=== PATIENT | male | born 1965 | race Caucasian/White ===

== ENCOUNTER → 2018-07-15 | Outpatient (CLI) | payer BC | LOC: RADUSWWP 13:58 | PROVIDERS: ATTEND Family Medicine | DX: R60.9 Edema, unspecified (principal); E78.5 Hyperlipidemia, unspecified | CPT/HCPCS: 93922 ==

== ENCOUNTER → 2019-02-10 | Outpatient (CLI) | payer BC ==
--- NOTE | 2019-02-11 08:57 | USB ---
Reason for exam: clinical finding. Indicated problem(s): palpable abnormality and lump or thickening in the right breast. Physical Findings: Nurse Summary: 3cm firm, movable nodule (nurse dw). US Breast RT Right complete breast ultrasound includes all four quadrants, the retroareolar region and axilla. Finding demonstrates a 2.5 x 1.8 x 2.2cm hypoechoic lesion at the posterior nipple. Located upper outer quadrant retroareolar. Some internal vascularity is present. Finding is very suspicious. Completion of work up with mammography recommended. These results were verbally communicated with the patient and result sheet given to the patient on 02/10/19. ASSESSMENT: Incomplete: need additional imaging evaluation, BI-RAD 0 RECOMMENDATION: Special view mammogram of both breasts. (including right lateral)
--- NOTE | 2019-02-11 09:00 | MM ---
Reason for exam: clinical finding. Indicated problem(s): palpable abnormality and lump or thickening in the right breast. [facility] Mammo w CAD JANIS Bilateral CC and MLO view(s) were taken. The breast tissue is almost entirely fat. Trace gynecomastia on the left. Large subareolar mass with associated heterogeneous calcifications measures 2.6 x 2.4 x 2.1cm. These results were verbally communicated with the patient and result sheet given to the patient on 02/10/19. ASSESSMENT: Highly suggestive of malignancy, BI-RAD 5 RECOMMENDATION: Surgical consultation and ultrasound core biopsy of the right breast. Called Dr. Figueroa with mammographic findings and has scheduled an appointment for the patient for 02/26/19 at 4:[address] Deluna. Biopsy scheduled for 02/19/19 at 2:00. PRELIMINARY REPORT CALLED AND FAXED TO DR. DELUNA ON 02/11/19.
== END | disposition home or self-care (01) ==
LOC: RADUSWWP 15:38
PROVIDERS: ATTEND Family Medicine
DX: N63.41 Unspecified lump in right breast, subareolar (principal)
CPT/HCPCS: 77066

== ENCOUNTER → 2019-02-19 | Day surgery (SDC) | payer BC ==
[2019-02-19 13:17] VITALS: RESP 16; BMI 36.5
[2019-02-19 14:44] VITALS: BP 114/75; PULSE 81; TEMP 97.8
--- NOTE | 2019-02-19 21:24 | USB ---
EXAMINATION TYPE: US biopsy breast VAD RT DATE OF EXAM: 02/19/2019 CLINICAL HISTORY: 53-year-old male patient is palpable abnormality, R92.8 Abnormal mammogram. TECHNIQUE: Ultrasound guided core biopsy of the subareolar right breast. COMPARISON: 02/10/2019 FINDINGS: The procedure of ultrasound guided core biopsy was explained to the patient. Benefits, alt ernatives, and risks were discussed. An informed consent was then obtained. The large vascular subareolar mass with a associated calcifications was targeted for biopsy. The patient was placed in supine positioning for imaging and for the procedure. The overlying skin w as prepped and draped in usual sterile fashion. Lidocaine was used as anesthetic into the skin follo wed by lidocaine/epinephrine mixture into the subcutaneous tissue and into the area of concern in the subareolar right breast. Under ultrasound guidance, 13-gauge vacuum-assisted mammotome Elite biopsy gun was used to obtain 6 c ore samples. Following this, a ribbon clip was left in lesion. The patient tolerated the procedure well without any immediate complication. The patient was kept in the radiology department for short stay after the procedure and then discharged home in stable condi tion. Post procedure mammogram was deferred at this time. IMPRESSION: Successful, uncomplicated ultrasound guided core biopsy of suspicious subareolar mass in the right breast, full pathology results to follow.
== END ==
LOC: RADUSWWP 12:26
PROVIDERS: ATTEND Surgery
DX: C50.021 Malignant neoplasm of nipple and areola, right male breast (principal)
CPT/HCPCS: 88305; 19083; A4648; J2001

== ENCOUNTER 2019-03-07 08:59 | Day surgery (SDC) | payer BC ==
[2019-03-07 09:25] VITALS: TEMP 97.6
[2019-03-07] MEDS ORDERED: ALPRAZolam 0.5 MG TAB PO STA (09:35)
[2019-03-07 10:35] VITALS: BP 146/79; PULSE 88; RESP 16
--- NOTE | 2019-03-07 10:37 | USB ---
Reason for exam: clinical finding. History: Patient has history of breast cancer at age 53. Malignant US biopsy breast VAD RT of the right breast, February 19, 2019. US Breast Axilla RT Right breast axilla ultrasound demonstrated a 4.8 x 3.4cm solid enlarged node at the axilla. ASSESSMENT: Suspicious, BI-RAD 4 RECOMMENDATION: Ultrasound core biopsy of the right breast.
--- NOTE | 2019-03-07 10:39 | US ---
ULTRASOUND GUIDED CORE BIOPSY RIGHT AXILLA LYMPH NODE: CLINICAL HISTORY: Large right axilla lymph node FINDINGS: The procedure was explained to the patient. The risks, complications, benefits and alternatives were discussed and any questions were answered. Informed consent was obtained. Patient was placed supin e on the ultrasound table and prepped and draped in the usual sterile fashion. Utilizing a 18-gauge core biopsy needle, five passes were made into the requested lymph node in the right axilla. A surgi vanessa clip was placed post biopsy Patient was stable throughout the procedure. Pathology is pending. All elements of maximal barrier and sterile technique were utilized. IMPRESSION: 1. Successful ultrasound guided core biopsy right axilla lymph node.
== END 2019-03-07 10:34 | disposition home or self-care (01) ==
LOC: RADPROMAIN 08:59 → EDSTATUS 09:00 → RADPROMAIN 10:34
PROVIDERS: ATTEND Surgery
DX: C50.921 Malignant neoplasm of unspecified site of right male breast (principal)
CPT/HCPCS: 88305; 88342; 88341; 76942; 38505; 76642; A4648

== ENCOUNTER → 2019-03-15 | Outpatient (CLI) | payer BC ==
--- NOTE | 2019-03-19 09:48 | PE ---
Nuclear medicine PET/CT HISTORY: Cancer right breast, initial Patient received 7.2 mCi F-18 FDG intravenously in delayed scanning performed from the skull base to the mid thighs. Localization and attenuation correction CT scan was performed. Comparison ultrasound right breast 02/10/2019 Neck and chest: There is no evident cervical adenopathy. Shotty nodes are present within the bilatera l neck. No associated hypermetabolic uptake. There is some uptake in the base of the tongue felt like ly to be physiologic. Correlate. Lungs show no mass. There is no mediastinal or hilar adenopathy. Right breast mass is noted in the swain bareolar location measuring 2.7 cm. There is associated hypermetabolic uptake, SUV is 3.9. No axillar y adenopathy. ABDOMEN: No evident liver mass. No retroperitoneal adenopathy or suspicious hypermetabolic uptake. Th ere are gallstones noted. There are prostate calcifications. Osseous structures: Postop changes noted in the right hip. No suspicious hypermetabolic uptake. Mild inflammatory change in the maxillary sinuses. Impression: Findings compatible with patient's right breast carcinoma. No evidence of metastatic dise ase. Some mild uptake in the base of the tongue may be physiologic, due to secretions. Consider direc t visualization.
== END | disposition home or self-care (01) ==
LOC: RADPETMAIN 13:20
PROVIDERS: ATTEND Surgery
DX: C50.821 Malignant neoplasm of overlapping sites of right male breast (principal); R93.89 Abnormal findings on diagnostic imaging of other specified body structures
CPT/HCPCS: 78815; A9552

== ENCOUNTER 2019-05-01 11:00 | Day surgery (SDC) | payer BC ==
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
[~2019-05-01 11:00] MED LIST: DEXAMETHASONE SOD PHOSPHATE 10 MG/ML 1 ML VIAL IV ONE; HEPARIN SODIUM,PORCINE 5,000 UNIT/ML 1 ML VIAL SQ ONE; LIDOCAINE 1% 20 ML VIAL (10MG/ML) FOR IV START INTRADERMA PRN; ONDANSETRON 4 MG/2 ML VIAL IVP ONE; Pre Op ABX Message 1 EACH MISC MISCELLANE ONE; SCOPOLAMINE 1.5MG/72HR PATCH TRANSDERM ONE
[2019-05-01 11:42] VITALS: RESP 16
[2019-05-01] MEDS: LACTATED RINGERS 1,000 ML IV SCH ×2 (12:09→23:36)
--- NOTE | 2019-05-01 12:16 | NM ---
EXAMINATION TYPE: NM sentinel node injection DATE OF EXAM: 05/01/2019 COMPARISON: Right breast biopsy dated 02/19/2019 HISTORY: Right breast cancer TECHNIQUE AND FINDINGS: The procedure of sentinel lymph node injection was explained to the patient. The benefits, alternatives, and risks were discussed. An informed consent was then obtained. Overlying skin is cleaned with sterile alcohol. Following this, 554 uCi Tc99m Tilmanocept was inject ed in the upper outer aspect of the right nipple intradermally. The patient tolerated the procedure well without any immediate complication. The patient was kept in the radiology department for short stay after the procedure and then taken to surgery for surgical p rocedure what is presumed intraoperative gamma probe will be used for sentinel lymph node detection. IMPRESSION: Right breast radiotracer injection for sentinel node localization as above.
[2019-05-01] MEDS ORDERED: MIDAZOLAM (PF) 2 MG/2 ML VIAL IV ONE (12:21)
[2019-05-01] MEDS ORDERED: ceFAZolin 3 GM in SODIUM CHLORIDE 0.9% 100 ML IVPB ONE (12:56)
[2019-05-01] MEDS ORDERED: PROPOFOL 10 MG/ML 20 ML VIAL IV ONE (13:20)
[2019-05-01] MEDS ORDERED: PHENYLEPHRINE-0.9% NACL SYG 1 MG/10 ML SYRINGE ONE (13:20)
[2019-05-01] MEDS ORDERED: LIDOCAINE 1% INJ 10MG/ML (20 ML MDV) ONE (13:20)
[2019-05-01] MEDS ORDERED: MIDAZOLAM 2 MG/2 ML VIAL ONE (13:20)
[2019-05-01] MEDS ORDERED: SUCCINYLCHOLINE CHLORIDE VIAL 200 MG/10 ML VIAL IV ONE (13:20)
[2019-05-01] MEDS ORDERED: fentaNYL (PF) 50 MCG/ML 2 ML AMP ONE (13:20)
[2019-05-01] MEDS ORDERED: METHYLENE BLUE 50 MG/10 ML AMPUL INJ ONE (14:05)
[2019-05-01] MEDS ORDERED: LACTATED RINGERS 1,000 ML IV ONE (15:00)
[2019-05-01] MEDS ORDERED: ONDANSETRON 4 MG/2 ML VIAL IVP PRN (16:15)
[2019-05-01] MEDS ORDERED: NALOXONE 0.4 MG/ML 1 ML VIAL IV PRN (16:15)
[2019-05-01] MEDS ORDERED: HYDROcodone/APAP 5-325MG 1 EACH TAB PO PRN (16:15)
[2019-05-01] MEDS ORDERED: HYDROmorphone 0.5 MG/0.5 ML SYRINGE IVP PRN (16:15)
--- NOTE | 2019-05-01 16:23 | P.OP ---
Date of Procedure: 05/01/19 Procedure(s) Performed: PREOPERATIVE DIAGNOSIS: Right breast cancer POSTOPERATIVE DIAGNOSIS: Same PROCEDURE: Right breast mastectomy with sentinel lymph node biopsy SURGEON: Regi EBL: Minimal ANESTHESIA: General COMPLICATIONS: None OPERATIVE PROCEDURE: Patient was placed on the operating room table in the supine position. 2 mL of methylene blue was injected into the subareolar space. The breast was then massaged for 5 minutes. Using the skin marker the proposed incision sites were drawn out on the chest wall. The right axilla was first addressed however. The hot spot in the right axilla was identified using the neoprobe. An incision was made overlying the lower aspect of the hairline. Dissection through the subcutaneous fat and the deltopectoral fascia using electrocautery. The patient had a total of 4 sentinel lymph nodes. All 4 of these were radioactive and 2 of them were blue in color. These were sent for frozen section and we learned that they were negative for metastatic breast cancer. Dissection in the axilla took place using both electrocautery and the Harmonic scalpel. Clips were also used on small vessels. Additionally the patient had a large area of fatty induration that turned out to represent additional adenopathy. This was excised in a similar fashion and sent to pathology for close examination. I suspect this was the area that was previously biopsied under ultrasound guidance. After discussing with pathology it was felt that the patient's lymph nodes were atypical in appearance and flow cytometry was going to be ordered to evaluate for proliferative disease. A drain was placed in the axillary space given the extent of our dissection. This was brought out inferiorly. This was sutured to the skin using a 3-0 silk stitch. The subcutaneous tissues were closed using 3-0 Vicryl sutures. The skin was closed at the axillary incision using a running 4-0 Monocryl stitch. The chest wall was then addressed. The superior incision was first created. The incision was elliptical in nature encompassing the nipple areolar complex. Flaps were raised superiorly until the chest wall was reached. The mastectomy incision was then created inferiorly and flaps were again raised until the chest wall was reached. The breast was removed from the chest wall using electrocautery. Multiple vessels were divided using either electrocautery or the clip quality improvement manager. It should be noted that additional somewhat unusual lymph nodes were encountered when raising our flaps beneath the skin. These were sent with the mastectomy specimen. The area was irrigated. No bleeding was seen. A drain was placed beneath the flaps of the mastectomy incision. The subcutaneous tissues were then closed using 3-0 Vicryl sutures and the skin was closed using a running 4-0 Monocryl stitch. Prineo dressing was used along the entire length of the incision with Dermabond. The drain was sutured in place using a 3-0 silk stitch. DISPOSITION: Stable to recovery room
[2019-05-01] MEDS: HYDROmorphone 0.5 MG/0.5 ML SYRINGE IVP PRN ×3 (17:08→17:32)
[2019-05-01] MEDS ORDERED: ALBUTEROL NEBULIZED 2.5 MG/3 ML INHALATION PRN (18:45)
[2019-05-01] MEDS: DOCUSATE 100 MG CAP PO SCH (20:50)
[2019-05-01] MEDS ORDERED: HYDROmorphone 1 MG/ML 1 ML SYRINGE IVP PRN (20:59)
[2019-05-01] MEDS ORDERED: FAMOTIDINE 20 MG TAB PO PRN (22:00)
[2019-05-01] MEDS ORDERED: HYDROCHLOROTHIAZIDE 12.5 MG CAP PO PRN (22:00)
[2019-05-01] MEDS: D5-0.45% NACL WITH KCL 20MEQ/L 1,000 ML IV SCH (22:02)
[2019-05-01] MEDS: HEPARIN SODIUM,PORCINE 5,000 UNIT/ML 1 ML VIAL SQ SCH (23:17)
[2019-05-01 23:34] VITALS: BMI 37.0
[2019-05-02] MEDS: D5-0.45% NACL WITH KCL 20MEQ/L 1,000 ML IV SCH ×2 (05:21→07:46)
[2019-05-02] MEDS: DOCUSATE 100 MG CAP PO SCH (07:38)
[2019-05-02] MEDS: HEPARIN SODIUM,PORCINE 5,000 UNIT/ML 1 ML VIAL SQ SCH (07:39)
[2019-05-02 07:40] LABS: African American GFR (CKD) >90 (>60 ml/min/1.73 sqM); Anion Gap 10 mmol/L; Blood Urea Nitrogen 18 mg/dL (9-20); Calcium 8.8 mg/dL (8.4-10.2); Carbon Dioxide 24 mmol/L (22-30); Chloride 106 mmol/L (98-107); Glucose 144 mg/dL (74-99); Magnesium 1.8 mg/dL (1.6-2.3); Potassium 4.3 mmol/L (3.5-5.1); Sodium 140 mmol/L (137-145)
[2019-05-02] MEDS ORDERED: SYMBICORT 160-4.5 MCG INHALER INHALATION SCH (08:00)
--- NOTE | 2019-05-02 08:04 | CONS ---
CONSULTATION DATE OF SERVICE: 05/01/2019 REASON FOR CONSULTATION: Advice regarding asthma, hyperlipidemia and other medical issues requested by Dr. Deluna. HISTORY OF PRESENT ILLNESS: This is a 53-year-old gentleman with a past medical history of asthma, hyperlipidemia, sleep apnea, underwent right breast mastectomy with a sentinel lymph node biopsy for right breast cancer by Dr. Deluna. The patient tolerated the procedure well. There is no history of fever, chills, or rigors. No history of headache, loss of consciousness. No chest pain or palpation. PAST MEDICAL HISTORY: Asthma, hyperlipidemia, sleep apnea, breast cancer, DJD. MEDICATIONS: Home medications are: 1. Vitamin D3 two thousand daily. 2. Ranitidine 150 mg p.o. b.i.d. 3. Singulair 10 mg q.h.s. 4. HydroDIURIL 12.5 mg Sunday, Sunday, Sunday, Sunday p.r.n. 5. Advair 230 two puffs b.i.d. 6. Multivitamins, one p.o. daily.. 7. Fish oil, one p.o. daily. 8. Aspirin 81 mg. 9. Barco 5 mg q.6 p.r.n. ALLERGIES: None. FAMILY HISTORY: History of cervical cancer in the family. SOCIAL HISTORY: No history of smoking, no history of alcohol. REVIEW OF SYSTEMS: ENT: No diminished vision. No diminished hearing. CARDIOVASCULAR SYSTEM: No angina,. RESPIRATORY: As mentioned earlier. GI: No nausea. : No dysuria. NERVOUS SYSTEM: No focal deficits. ALLERGY/IMMUNOLOGY: As mentioned earlier. HEMATOLOGY: As mentioned earlier. ENDOCRINE: No history of diabetes or hypothyroidism. CONSTITUTIONAL: As mentioned earlier. DERMATOLOGY: Negative. RHEUMATOLOGY: Negative. PSYCHIATRY: As mentioned earlier. PHYSICAL EXAMINATION: Alert and oriented x3. Pulse is 97, blood pressure 133/70, respiration 16, temperature 98.2, pulse ox 98% on room air. HEENT: Conjunctivae normal, oral mucosa moist. NECK: No jugular venous distention. No lymph node enlargement. CARDIOVASCULAR SYSTEM: S1, S2, muffled. RESPIRATORY: Breath sounds diminished at the bases. No rhonchi. No crackles. ABDOMEN: Soft, nontender. No mass palpable, no hepatosplenomegaly. LEGS: No edema, no swelling. NERVOUS SYSTEM: Higher function as mentioned earlier. Moves all 4 limbs. No focal motor signs. LYMPHATICS: No lymph node enlargement in the neck/ SKIN: No ulcer, rash or bleeding. JOINTS: No active deforming arthropathy. DIFFERENTIAL: Right chest status post breast surgery. LABS: The preop labs are hematology shows MCV 102. Otherwise, chemistry: is Creatine kinase 405. ASSESSMENT: 1. Status post right breast mastectomy with sentinel lymph node biopsy for right breast cancer. 2. History of asthma. 3. History of hyperlipidemia. 4. History of sleep apnea. 5. History of degenerative joint disease. RECOMMENDATION AND DISCUSSION: In this 53-year-old gentleman who presented after surgery. At this time, I recommend to continue current management and symptomatic treatment, resume the home medications. DVT prophylaxis. Incentive spirometry. Will follow the patient closely with you and patient may be asked to follow up with Dr. Figueroa closely after discharge. Thank you Dr. Deluna, for letting us participate in this patient. MMODL / IJN: [id number] /
[2019-05-02] MEDS ORDERED: PANTOPRAZOLE 40 MG/10 ML VIAL IV SCH (09:00)
[2019-05-02] MEDS ORDERED: CHOLECALCIFEROL 1,000 UNIT TAB PO SCH (09:00)
[2019-05-02] MEDS ORDERED: NON-FORMULARY DRUG (Aspirin [Adult Low Dose Aspirin Ec] 81 MG) PO SCH (09:00)
[2019-05-02] MEDS ORDERED: MULTIVITAMINS, THERA 1 EACH TAB PO SCH (09:00)
[2019-05-02 09:52] LABS: Basophils # (A) 0.1 k/uL (0-0.2); Basophils % (A) 1 %; Eosinophils # (A) 0.1 k/uL (0-0.7); Eosinophils % (A) 0 %; HCT 39.4 % (39.0-53.0); HGB 13.2 gm/dL (13.0-17.5); Lymphocytes # (A) 3.6 k/uL (1.0-4.8); Lymphocytes % (A) 24 %; MCH 34.1 pg (25.0-35.0); MCHC 33.6 g/dL (31.0-37.0); MCV 101.3 fL (80.0-100.0); Macrocytosis Slight; Mean Platelet Volume 8.2; Monocytes # (A) 0.9 k/uL (0-1.0); Monocytes % (A) 6 %; Neutrophils % (A) 66 %; Platelet Count 284 k/uL (150-450); RBC 3.89 m/uL (4.30-5.90); RDW 13.6 % (11.5-15.5); WBC 15.3 k/uL (3.8-10.6)
--- NOTE | 2019-05-02 12:42 | P.PN ---
<JanyTiffanie Tarik - Last Filed: 05/02/19 12:22> Subjective Progress Note Date: 05/02/19 CHIEF COMPLAINT: Right breast cancer HISTORY OF PRESENT ILLNESS: 53-year-old male who is status post right breast mastectomy with sentinel node biopsy. Postop day #1. Patient reports his pain is tolerable. LAMONT drains with 20cc drainage from each drain this morning per nursing. Tolerating diet. Denies nausea and vomiting. WBC 15.3. Hemoglobin 13.2. PHYSICAL EXAM: VITAL SIGNS: Reviewed. GENERAL: Well-developed in no acute distress. HEENT: No sclera icterus. Extraocular movements grossly intact. Moist buccal mucosa. Head is atraumatic, normocephalic. ABDOMEN: Soft. Nondistended. Nontender. NEUROLOGIC: Alert and oriented. Cranial nerves II through XII grossly intact. SKIN: Dressing to right chest intact with small amount of serous drainage. LAMONT drain 2 with sanguinous drainage. ASSESSMENT: 1. Right breast cancer status post right breast mastectomy with sentinel biopsy PLAN: 1. Await biopsy results 2. Continue diet as tolerated 3. Pain control 4. Continue to monitor drainage from LAMONT drains 5. Patient hoping to be discharged home today. Dr. Deluna to re-evaluate patient this afternoon. Nurse practitioner note has been reviewed by physician. Signing provider agrees with the documented findings, assessment, and plan of care. Objective - Vital Signs Vital signs: Vital Signs Temp 98.6 F 05/02/19 07:14 Pulse 90 05/02/19 07:14 Resp 16 05/02/19 07:14 BP 121/76 05/02/19 07:14 Pulse Ox 97 05/02/19 07:14 Intake & Output 05/01/19 05/02/19 05/02/19 18:59 06:59 18:59 Intake Total 1500 180 Output Total 275 335 Balance 1225 -335 180 Weight 127.006 kg Intake: IV 1500 Oral 180 Output: Drainage 35 Right Chest 20 Right Lower Chest 15 Urine 200 300 Estimated Blood Loss 75 Other: Voiding Method Urinal - Labs CBC & Chem 7: 05/02/19 07:08 05/02/19 07:08 Labs: Abnormal Lab Results - Last 24 Hours (Table) 05/02/19 05/02/19 Range/Units 07:08 07:08 WBC 15.3 H (3.8-10.6) k/uL RBC 3.89 L (4.30-5.90) m/uL MCV 101.3 H (80.0-100.0) fL Neutrophils # 10.0 H (1.3-7.7) k/uL Glucose 144 H (74-99) mg/dL <[id number] - Last Filed: 05/02/19 16:36> Subjective As above see discharge summary Objective - Vital Signs Vital signs: Vital Signs Temp 98.5 F 05/02/19 14:01 Pulse 92 05/02/19 14:01 Resp 16 05/02/19 14:01 BP 126/77 05/02/19 14:01 Pulse Ox 97 05/02/19 14:01 Intake & Output 05/01/19 05/02/19 05/02/19 18:59 06:59 18:59 Intake Total 1500 360 Output Total 275 335 40 Balance 1225 -335 320 Weight 127.006 kg Intake: IV 1500 Oral 360 Output: Drainage 35 40 Right Chest 20 20 Right Lower Chest 15 20 Urine 200 300 Estimated Blood Loss 75 Other: Voiding Method Urinal # Voids 1 - Labs CBC & Chem 7: 05/02/19 07:08 05/02/19 07:08 Labs: Abnormal Lab Results - Last 24 Hours (Table) 05/02/19 05/02/19 Range/Units 07:08 07:08 WBC 15.3 H (3.8-10.6) k/uL RBC 3.89 L (4.30-5.90) m/uL MCV 101.3 H (80.0-100.0) fL Neutrophils # 10.0 H (1.3-7.7) k/uL Glucose 144 H (74-99) mg/dL Assessment and Plan (1) Cancer of right male breast Current Visit: No Status: Acute Code(s): C50.921 - MALIGNANT NEOPLASM OF UNSPECIFIED SITE OF RIGHT MALE BREAST SNOMED Code(s): 429859415
[2019-05-02 14:15] VITALS: BP 126/77; PULSE 92; TEMP 98.5
--- NOTE | 2019-05-02 14:33 | PN ---
PROGRESS NOTE DATE OF SERVICE: 05/02/2019 This is a 53-year-old gentleman who was admitted with right breast mastectomy, is improving significantly. Dr. Deluna is following the patient closely. No chest pain. No palpitations. No fever. PHYSICAL EXAM: Alert and oriented x3. Pulse is at 90, blood pressure 121/76, respirations 16, temperature 98.6, pulse ox 97% on room air. HEENT: Conjunctivae normal. NECK: No jugular venous distension. CARDIOVASCULAR: S1, S2, muffled. RESPIRATION: Breath sounds diminished at the bases, no rhonchi, no crackles. ABDOMEN: Soft, nontender. LEGS: Minimal edema. NERVOUS SYSTEM: No focal extension of the breast status post surgery. LABS: At this time shows WBC 15.3, hemoglobin is 13.2. ASSESSMENT: 1. Status post right breast mastectomy with sentinel lymph node biopsy for right breast cancer. 2. History of asthma. 3. Hyperlipidemia. 4. History of sleep apnea. 5. History of degenerative joint disease. RECOMMENDATION: Recommend to continue current management. I recommend continue the home medications. Follow up with Dr. Figueroa in the outpatient setting. Otherwise, rest of the recommendations per Surgery. MMODL / IJN: [id number] /
--- NOTE | 2019-05-02 15:54 | P.DS ---
<Tiffanie Carmichael - Last Filed: 05/02/19 15:52> Providers Expected date of discharge: 05/02/19 Hospital Course: 53-year-old male who is status post right breast mastectomy with sentinel node biopsy. Patient is doing well postoperatively without any immediate complications. His pain is controlled on oral medications. LAMONT drains with minimal output today. Tolerating diet without nausea or vomiting. Vital signs have been stable. He is stable for discharge home today per Dr. Deluna with LAMONT drains. Patient is to follow up outpatient. Please see EMR for further hospital course details. Discharge Diagnosis: 1. Right breast cancer status post right breast mastectomy with sentinel biopsy Nurse practitioner note has been reviewed by physician. Signing provider agrees with the documented findings, assessment, and plan of care. Patient Condition at Discharge: Stable Plan - Discharge Summary Discharge Rx Participant: No New Discharge Prescriptions: New Hydrocodone/Acetaminophen [Beaumont 5-325] 1 tab PO Q6HR PRN 3 Days #10 tab PRN Reason: Pain No Action Fish Oil/Dha/Epa [Fish Oil 1,200 mg Fish Oil] 1 each PO DAILY Aspirin [Adult Low Dose Aspirin EC] 81 mg PO DAILY Ranitidine HCl 150 mg PO BID PRN PRN Reason: Heartburn Multivitamins, Thera [Multivitamin (formulary)] 1 tab PO DAILY Montelukast [Singulair] 10 mg PO HS Cholecalciferol [Vitamin D3 (25 Mcg = 1000 Iu)] 2,000 unit PO DAILY Hydrochlorothiazide [Hydrodiuril] 12.5 mg PO [place] PRN PRN Reason: swelling right foot Fluticasone/Salmeterol [Advair Hfa 230-21 Mcg Inhaler] 2 puff INHALATION BID Albuterol Inhaler [Ventolin Hfa Inhaler] 1 - 2 puff INHALATION RT-Q6H PRN PRN Reason: Shortness Of Breath Discharge Medication List Aspirin [Adult Low Dose Aspirin EC] 81 mg PO DAILY 02/11/19 [History] Fish Oil/Dha/Epa [Fish Oil 1,200 mg Fish Oil] 1 each PO DAILY 02/11/19 [History] Montelukast [Singulair] 10 mg PO HS 02/11/19 [History] Multivitamins, Thera [Multivitamin (formulary)] 1 tab PO DAILY 02/11/19 [History] Ranitidine HCl 150 mg PO BID PRN 02/11/19 [History] Albuterol Inhaler [Ventolin Hfa Inhaler] 1 - 2 puff INHALATION RT-Q6H PRN 04/23/19 [History] Cholecalciferol [Vitamin D3 (25 Mcg = 1000 Iu)] 2,000 unit PO DAILY 04/23/19 [History] Fluticasone/Salmeterol [Advair Hfa 230-21 Mcg Inhaler] 2 puff INHALATION BID 04/23/19 [History] Hydrochlorothiazide [Hydrodiuril] 12.5 mg PO [place] PRN 04/23/19 [History] Hydrocodone/Acetaminophen [Beaumont 5-325] 1 tab PO Q6HR PRN 3 Days #10 tab 05/01/19 [Rx] Follow up Appointment(s)/Referral(s): Rd Deluna MD [Medical Doctor] - 05/14/19 3:10 pm Patient Instructions/Handouts: [facility] Drain Care (DC), Mastectomy (DC) Discharge Disposition: HOME WITH HOME HEALTH SERVICES <Rd Deluna - Last Filed: 05/02/19 16:41> Providers Attending physician: Rd Deluna Consults: 05/01/19 16:15 Consult Physician Routine Consulting Provider: Graham Milligan Consult Reason/Comments: Medical management Do you want consulting provider notified?: Yes Primary care physician: Ricardo Figueroa - Discharge Diagnosis(es) (1) Cancer of right male breast Current Visit: No Status: Acute Hospital Course: Patient minute yesterday for right breast mastectomy. Patient doing well postoperatively. Drains are putting out minimal fluid. He has had no analgesics since last night. He would like to go home. We'll arrange discharge. Follow-up 2 weeks. Monitor drain output after discharge. Possible drain removal in the office next week depending on the volume.
[2019-05-02] MEDS ORDERED: MONTELUKAST 10 MG TAB PO SCH (21:00)
[2019-05-03] MEDS ORDERED: PANTOPRAZOLE 40 MG TABLET PO SCH (07:30)
== END 2019-05-02 17:24 | disposition home health service (06) ==
LOC: OR 11:00 → 4SSUR 15:58 → OR 05-02 17:24
PROVIDERS: ATTEND Surgery
DX: C50.921 Malignant neoplasm of unspecified site of right male breast (principal); C77.3 Secondary and unspecified malignant neoplasm of axilla and upper limb lymph nodes; C85.94 Non-Hodgkin lymphoma, unspecified, lymph nodes of axilla and upper limb; C91.10 Chronic lymphocytic leukemia of B-cell type not having achieved remission; K21.9 Gastro-esophageal reflux disease without esophagitis; E78.5 Hyperlipidemia, unspecified; J45.909 Unspecified asthma, uncomplicated; M19.90 Unspecified osteoarthritis, unspecified site; G47.33 Obstructive sleep apnea (adult) (pediatric); Z99.89 Dependence on other enabling machines and devices; Z80.49 Family history of malignant neoplasm of other genital organs; Z80.42 Family history of malignant neoplasm of prostate; Z80.8 Family history of malignant neoplasm of other organs or systems; Z79.51 Long term (current) use of inhaled steroids; J30.1 Allergic rhinitis due to pollen; Z80.0 Family history of malignant neoplasm of digestive organs; Z82.3 Family history of stroke; Z82.49 Family history of ischemic heart disease and other diseases of the circulatory system; Z83.511 Family history of glaucoma; Z79.899 Other long term (current) drug therapy; Z79.82 Long term (current) use of aspirin
CPT/HCPCS: 80048; 83735; 85025; 88342; 88331; 88307; 88309; 88341; 38792; 19303; 38525; A9520; J2250 ×2; J0330; J1644; J1100; J0690; J2405; J2001; J3010; J1170 ×2; J2370; J2704; C9113; Q9968

== ENCOUNTER 2019-05-09 17:33 | Emergency (ER) | payer BC ==
[2019-05-09 17:44] VITALS: RESP 18
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
[2019-05-09 20:47] LABS: Basophils # (A) 0.1 k/uL (0-0.2); Basophils % (A) 0 %; Eosinophils # (A) 0.2 k/uL (0-0.7); Eosinophils % (A) 1 %; HCT 43.3 % (39.0-53.0); HGB 14.7 gm/dL (13.0-17.5); Lymphocytes # (A) 4.9 k/uL (1.0-4.8); Lymphocytes % (A) 37 %; MCH 33.5 pg (25.0-35.0); MCHC 33.9 g/dL (31.0-37.0); MCV 98.8 fL (80.0-100.0); Mean Platelet Volume 7.4; Monocytes # (A) 0.6 k/uL (0-1.0); Monocytes % (A) 4 %; Neutrophils # (A) 7.1 k/uL (1.3-7.7); Neutrophils % (A) 53 %; Platelet Count 296 k/uL (150-450); RBC 4.38 m/uL (4.30-5.90); RDW 12.4 % (11.5-15.5); WBC 13.3 k/uL (3.8-10.6)
[2019-05-09 20:58] LABS: ALT 70 U/L (21-72); AST 49 U/L (17-59); African American GFR (CKD) >90 (>60 ml/min/1.73 sqM); Albumin 4.5 g/dL (3.5-5.0); Alkaline Phosphatase 62 U/L (38-126); Anion Gap 12 mmol/L; Blood Urea Nitrogen 22 mg/dL (9-20); Calcium 9.7 mg/dL (8.4-10.2); Carbon Dioxide 25 mmol/L (22-30); Chloride 104 mmol/L (98-107); Glucose 91 mg/dL (74-99); Non-African American GFR(CKD) >90 (>60 ml/min/1.73 sqM); Potassium 4.5 mmol/L (3.5-5.1); Sodium 141 mmol/L (137-145); Total Bilirubin 0.3 mg/dL (0.2-1.3); Total Protein 8.5 g/dL (6.3-8.2)
[2019-05-09] MEDS ORDERED: CEPHALEXIN 500MG STARTER PACK 4 CAP BTL PO STA (21:11)
[2019-05-09 21:22] VITALS: BP 126/71; PULSE 96; TEMP 97.9
== END 2019-05-09 21:22 | disposition other institution (70) ==
LOC: EC 17:33
DX: Z48.03 Encounter for change or removal of drains (principal); J45.909 Unspecified asthma, uncomplicated; G47.30 Sleep apnea, unspecified; Z79.51 Long term (current) use of inhaled steroids; Z79.82 Long term (current) use of aspirin; Z79.899 Other long term (current) drug therapy; Z85.3 Personal history of malignant neoplasm of breast; Z90.11 Acquired absence of right breast and nipple; Z99.89 Dependence on other enabling machines and devices
CPT/HCPCS: 36415; 80053; 85025; 99284

== ENCOUNTER 2019-09-03 07:07 | Day surgery (SDC) | payer BC ==
[2019-08-28 14:31] VITALS: BMI 37.0
[~2019-09-03 07:07] MED LIST changes: -HEPARIN SODIUM,PORCINE 5,000 UNIT/ML 1 ML VIAL SQ ONE; +HYDROmorphone 0.5 MG/0.5 ML SYRINGE IVP PRN; +LACTATED RINGERS 1,000 ML IV SCH; -SCOPOLAMINE 1.5MG/72HR PATCH TRANSDERM ONE
[2019-09-03] MEDS ORDERED: PROPOFOL 10 MG/ML 20 ML VIAL IV ONE (08:04)
[2019-09-03] MEDS ORDERED: MIDAZOLAM 2 MG/2 ML VIAL ONE (08:04)
[2019-09-03] MEDS ORDERED: LIDOCAINE 1% INJ 10MG/ML (20 ML MDV) ONE (08:04)
[2019-09-03] MEDS ORDERED: SUCCINYLCHOLINE CHLORIDE VIAL 200 MG/10 ML VIAL IV ONE (08:04)
[2019-09-03] MEDS ORDERED: fentaNYL (PF) 50 MCG/ML 2 ML AMP ONE (08:04)
[2019-09-03] MEDS ORDERED: PHENYLEPHRINE-0.9% NACL SYG 1 MG/10 ML SYRINGE ONE (08:04)
[2019-09-03] MEDS ORDERED: HEPARIN SODIUM,PORCINE 5,000 UNIT/ML 1 ML VIAL ONE (08:04)
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
[2019-09-03] MEDS ORDERED: SODIUM CHLORIDE 0.9% 150 ML with ceFAZolin 3,000 MG IV ONE ×2 (08:25)
[2019-09-03] MEDS ORDERED: HEPARIN SODIUM,PORCINE 100 UNIT/ML 5 ML VIAL IV ONE (08:33)
[2019-09-03] MEDS ORDERED: LIDOCAINE (PF) 10 MG/ML 2 ML VIAL SQ ONE ×2 (08:34→08:51)
[2019-09-03] MEDS ORDERED: HYDROcodone/APAP 5-325MG 1 EACH TAB PO PRN (09:13)
[2019-09-03] MEDS ORDERED: NALOXONE 0.4 MG/ML 1 ML VIAL IV PRN (09:13)
--- NOTE | 2019-09-03 09:15 | P.OP ---
Date of Procedure: 09/03/19 Procedure(s) Performed: PREOPERATIVE DIAGNOSIS: Right breast cancer, lymphoma POSTOPERATIVE DIAGNOSIS: Same PROCEDURE: Port-A-Cath placement SURGEON: Regi EBL: Minimal ANESTHESIA: Sedation COMPLICATIONS: None OPERATIVE PROCEDURE: Patient was brought and placed on the operative table in the supine position. The patient was sedated per anesthesia that time. The chest and neck were prepped and draped in usual sterile fashion. The ultrasound probe was used to identify the location of the right internal jugular vein. The skin was localized with lidocaine. The Seldinger needle was advanced into the IJ under ultrasound guidance. The wire was advanced through the needle under fluoroscopic guidance into the superior vena cava. A port pocket was created in the right infraclavicular location. The catheter was tunneled from the wire entrance site to the port pocket. The port was then connected to the catheter. The dilator introducer was threaded over the guidewire. The guidewire and dilator were then removed. The catheter was advanced through the introducer and introducer was then removed. The tip was seen to be in the right atrial junction. Port was flushed with both saline and a Hep-Lock solution. There was good flow both in and out of the port. The port was sutured in underlying tissues using 3-0 silk sutures. The subcutaneous tissues were reapproximated using 3-0 Vicryl sutures and the skin at both locations using 4-0 Monocryl sutures. Skin glue and sterile dressings then applied. DISPOSITION: Stable to recovery room
[2019-09-03 09:19] VITALS: TEMP 97.1
--- NOTE | 2019-09-03 09:47 | XR ---
EXAMINATION TYPE: XR chest 1V confirm line [facility] DATE OF EXAM: 09/03/2019 COMPARISON: 05/20/2010 HISTORY: 54-year-old male line placement TECHNIQUE: Single frontal view of the chest is obtained. FINDINGS: Right anterior chest wall injection port with catheter tip seen to the lower SVC level. He art borderline enlarged. Mild interstitial prominence is unchanged. No consolidation, pneumothorax, o r pleural effusion. IMPRESSION: Right anterior chest wall injection port with catheter tip at the lower SVC level. Borderline heart s ize and chronic parenchymal changes.
--- NOTE | 2019-09-03 09:57 | FL ---
EXAMINATION TYPE: FL guided central line placemt HISTORY: Fluoroscopy time Impression: 1. Fluoroscopy support of 4 seconds provided to the referring physician.
[2019-09-03 10:17] VITALS: BP 120/67; PULSE 84; RESP 15
== END 2019-09-03 10:46 | disposition home or self-care (01) ==
LOC: OR 07:07
PROVIDERS: ATTEND Surgery
DX: C50.921 Malignant neoplasm of unspecified site of right male breast (principal); C91.10 Chronic lymphocytic leukemia of B-cell type not having achieved remission; J45.909 Unspecified asthma, uncomplicated; G47.33 Obstructive sleep apnea (adult) (pediatric); K21.9 Gastro-esophageal reflux disease without esophagitis; M19.90 Unspecified osteoarthritis, unspecified site; Z90.89 Acquired absence of other organs; Z90.11 Acquired absence of right breast and nipple; Z79.51 Long term (current) use of inhaled steroids; Z79.82 Long term (current) use of aspirin; Z79.899 Other long term (current) drug therapy; Z99.89 Dependence on other enabling machines and devices; Z80.42 Family history of malignant neoplasm of prostate; Z80.8 Family history of malignant neoplasm of other organs or systems
CPT/HCPCS: 77001; 36561; C1788; J2250; J0330; J2001 ×2; J1644; J1642; J1100; J2405; J0690; J3010; J2370; J2704

== ENCOUNTER → 2020-01-23 | Outpatient (CLI) | payer BC | END | disposition home or self-care (01) | LOC: LABWHC1 14:54 | PROVIDERS: ATTEND Pediatrics Pediatric Infectious Diseases | DX: Z11.59 Encounter for screening for other viral diseases (principal) ==

== ENCOUNTER 2020-01-26 07:44 | Day surgery (SDC) | payer BC ==
[2020-01-22 15:58] VITALS: BMI 35.7
[~2020-01-26 07:44] MED LIST changes: +ACETAMINOPHEN TAB 500 MG TAB PO ONE; -DEXAMETHASONE SOD PHOSPHATE 10 MG/ML 1 ML VIAL IV ONE; +HEPARIN SODIUM,PORCINE 5,000 UNIT/ML 1 ML VIAL SQ ONE; -HYDROmorphone 0.5 MG/0.5 ML SYRINGE IVP PRN; -LACTATED RINGERS 1,000 ML IV SCH; -LIDOCAINE 1% 20 ML VIAL (10MG/ML) FOR IV START INTRADERMA PRN; -ONDANSETRON 4 MG/2 ML VIAL IVP ONE; -Pre Op ABX Message 1 EACH MISC MISCELLANE ONE; +ceFAZolin 3 GM in SODIUM CHLORIDE 0.9% 100 ML IVPB ONE
[2020-01-26] MEDS ORDERED: DEXAMETHASONE SOD PHOSPHATE 10 MG/ML 1 ML VIAL IV ONE (07:52)
[2020-01-26] MEDS ORDERED: HYDROmorphone 0.5 MG/0.5 ML SYRINGE IVP PRN (07:52)
[2020-01-26] MEDS ORDERED: ONDANSETRON 4 MG/2 ML VIAL IVP ONE (07:52)
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
[2020-01-26 08:08] VITALS: TEMP 97.2
[2020-01-26] MEDS: LACTATED RINGERS 1,000 ML IV SCH ×2 (08:26→08:49)
[2020-01-26] MEDS ORDERED: MIDAZOLAM 2 MG/2 ML VIAL IVP ONE (08:37)
[2020-01-26] MEDS ORDERED: fentaNYL (PF) 50 MCG/ML 2 ML AMP ONE (08:50)
[2020-01-26] MEDS ORDERED: MIDAZOLAM 2 MG/2 ML VIAL ONE (08:50)
[2020-01-26] MEDS ORDERED: KETAMINE 10 MG/ML 20 ML VIAL ONE (08:50)
[2020-01-26] MEDS ORDERED: PROPOFOL 10 MG/ML 20 ML VIAL IV ONE (08:50)
[2020-01-26] MEDS ORDERED: BUPIVACAINE (PF) 0.25% 30 ML VIAL SQ ONE (09:12)
[2020-01-26] MEDS ORDERED: HYDROcodone/APAP 5-325MG 1 EACH TAB PO PRN (09:29)
[2020-01-26] MEDS ORDERED: NALOXONE 0.4 MG/ML 1 ML VIAL IV PRN (09:29)
--- NOTE | 2020-01-26 09:30 | P.OP ---
Date of Procedure: 01/26/20 Procedure(s) Performed: PREOPERATIVE DIAGNOSIS: Breast cancer POSTOPERATIVE DIAGNOSIS: Same PROCEDURE: Port-A-Cath removal SURGEON: Regi EBL: Minimal ANESTHESIA: Sedation COMPLICATIONS: None OPERATIVE PROCEDURE: Patient was placed in the supine position. The patient was sedated per anesthesia that time. The chest was prepped and draped in the usual sterile fashion. The skin was localized with Marcaine solution. The previous incision was re-incised using a scalpel. The port was easily excised using accommodation of blunt dissection sharp dissection and electrocautery. The subcutaneous tissues were reapproximated using 3-0 Vicryl sutures. The skin was reapproximated using 4-0 Monocryl sutures. Skin glue was then applied. DISPOSITION: Stable to recovery room
[2020-01-26 09:36] VITALS: RESP 16
[2020-01-26 09:57] VITALS: BP 150/88; PULSE 85
== END 2020-01-26 11:15 | disposition home or self-care (01) ==
LOC: OR 07:44
PROVIDERS: ATTEND Surgery
DX: Z45.2 Encounter for adjustment and management of vascular access device (principal); C50.921 Malignant neoplasm of unspecified site of right male breast; C85.90 Non-Hodgkin lymphoma, unspecified, unspecified site; J45.909 Unspecified asthma, uncomplicated; K21.9 Gastro-esophageal reflux disease without esophagitis; M19.90 Unspecified osteoarthritis, unspecified site; G47.33 Obstructive sleep apnea (adult) (pediatric); E66.01 Morbid (severe) obesity due to excess calories; Z92.21 Personal history of antineoplastic chemotherapy; Z99.89 Dependence on other enabling machines and devices; Z90.89 Acquired absence of other organs; Z98.890 Other specified postprocedural states; Z90.11 Acquired absence of right breast and nipple; Z79.82 Long term (current) use of aspirin; Z79.899 Other long term (current) drug therapy; Z68.37 Body mass index [BMI] 37.0-37.9, adult; Z80.42 Family history of malignant neoplasm of prostate; Z80.8 Family history of malignant neoplasm of other organs or systems
CPT/HCPCS: 36590; J2250; J1644; J1100; J0690; J2405; J3010; J2704

== ENCOUNTER 2020-04-08 23:13 | Emergency (ER) | payer BC ==
[2020-04-08 23:20] VITALS: BP 121/75
[2020-04-08] MEDS ORDERED: ACETAMINOPHEN TAB 325 MG TAB PO STA (23:44)
[2020-04-08 23:57] VITALS: RESP 20
--- NOTE | 2020-04-09 00:09 | XR ---
EXAMINATION TYPE: XR chest 2V DATE OF EXAM: 04/08/2020 COMPARISON: 09/03/2019 HISTORY: Fever TECHNIQUE: FINDINGS: Heart and mediastinum are within normal limits. Lungs are clear. Diaphragm is normal. Bony thorax is intact. IMPRESSION: No active cardiopulmonary disease. No change.
[2020-04-09 00:23] LABS: HCT 39.4 % (39.0-53.0); HGB 13.1 gm/dL (13.0-17.5); MCH 32.6 pg (25.0-35.0); MCHC 33.3 g/dL (31.0-37.0); Platelet Count 230 k/uL (150-450); RBC 4.02 m/uL (4.30-5.90); RDW 13.8 % (11.5-15.5); WBC 5.8 k/uL (3.8-10.6)
[2020-04-09 00:33] LABS: ALT 64 U/L (4-49); AST 51 U/L (17-59); African American GFR (CKD) >90 (>60 ml/min/1.73 sqM); Albumin 4.2 g/dL (3.5-5.0); Alkaline Phosphatase 60 U/L (38-126); Anion Gap 6 mmol/L; Blood Urea Nitrogen 16 mg/dL (9-20); Carbon Dioxide 29 mmol/L (22-30); Chloride 100 mmol/L (98-107); Glucose 122 mg/dL (74-99); Non-African American GFR(CKD) 82 (>60 ml/min/1.73 sqM); Potassium 4.1 mmol/L (3.5-5.1); Sodium 135 mmol/L (137-145); Total Protein 7.8 g/dL (6.3-8.2)
[2020-04-09 00:35] LABS: Appearance,Urine Clear (Clear); Bilirubin,Urine Negative (Negative); Blood,Urine Small (Negative); Color,Urine Yellow; Glucose,Urine (UA) Negative (Negative); Ketones,Urine Negative (Negative); Leukocyte Esterase,Urine Negative (Negative); Mucus,Urine Occasional /hpf; Nitrite,Urine Negative (Negative); PH, Urine 5.5 (5.0-8.0); Protein,Urine Trace (Negative); RBC,Urine 2 /hpf (0-5); Specific Gravity,Urine 1.025 (1.001-1.035); Squamous Epithelial Cell,Urine <1 /hpf (0-4); Urobilinogen,Urine <2.0 mg/dL (<2.0); WBC,Urine 1 /hpf (0-5)
[2020-04-09 00:53] VITALS: PULSE 101; TEMP 99.4
[2020-04-09 00:53] LABS: Eosinophils # (M) 0.12 k/uL (0-0.7); Lymphocytes # (M) 1.04 k/uL (1.0-4.8); Monocytes # (M) 0.64 k/uL (0-1.0); Neutrophils % (M) 69 %; Nucleated Red Blood Cells 0 /100 WBC (0-0); Total Cells Counted 100
[2020-04-09] MEDS ORDERED: IPRATROPIUM-ALBUTEROL 3 ML NEB INHALATION STA (00:58)
[2020-04-09] MEDS ORDERED: predniSONE 20 MG TAB PO STA (01:20)
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
== END 2020-04-09 01:35 | disposition home or self-care (01) ==
LOC: EC 23:13
DX: B34.9 Viral infection, unspecified (principal); J45.909 Unspecified asthma, uncomplicated; K21.9 Gastro-esophageal reflux disease without esophagitis; G47.30 Sleep apnea, unspecified; Z79.82 Long term (current) use of aspirin; Z79.51 Long term (current) use of inhaled steroids; Z79.899 Other long term (current) drug therapy; Z85.3 Personal history of malignant neoplasm of breast; Z99.89 Dependence on other enabling machines and devices
CPT/HCPCS: 36415; 71046; 80053; 81001; 83605; 85025; 99283

== ENCOUNTER → 2020-11-30 | Outpatient (CLI) | payer BC | END | disposition home or self-care (01) | LOC: RADCTMAIN 18:38 | PROVIDERS: ATTEND Internal Medicine Hematology & Oncology | DX: Z53.9 Procedure and treatment not carried out, unspecified reason (principal) ==

== ENCOUNTER → 2020-12-29 | Outpatient (CLI) | payer BC ==
[2020-12-29 16:14] LABS: African American GFR (CKD) >90 (>60 ml/min/1.73 sqM); Blood Urea Nitrogen 18 mg/dL (9-20); Non-African American GFR(CKD) >90 (>60 ml/min/1.73 sqM)
--- NOTE | 2020-12-30 06:45 | CT ---
EXAMINATION TYPE: CT abdomen w con DATE OF EXAM: 12/29/2020 COMPARISON: PET/CT March 15, 2019 HISTORY: abnormal liver enzymes, history of right-sided breast cancer CT DLP: 1861 mGycm, Automated Exposure Control for Dose Reduction was Utilized. CONTRAST: CT scan of the abdomen is performed with oral and with IV Contrast, patient injected with 100 mL of I sovue 300. FINDINGS: LUNG BASES: Anterior right basilar linear and subpleural scarring. LIVER/GB: Dependent small calcified gallstones. Visualized liver heterogeneously hypodense consistent with diffuse fatty infiltration. No suspicious focal intrahepatic mass or intrahepatic or extrahepat ic biliary ductal dilatation. PANCREAS: No significant abnormality is seen. SPLEEN: No significant abnormality is seen. ADRENALS: No significant abnormality is seen. KIDNEYS: There is accessory right renal artery. BOWEL: No significant abnormality is seen. LYMPH NODES: No greater than 1cm abdominal lymph nodes are appreciated. OSSEOUS STRUCTURES: No significant abnormality is seen. OTHER: No significant additional abnormality is seen. IMPRESSION: Diffuse fatty infiltration of liver. No concerning mass or ductal dilatation.
--- NOTE | 2020-12-30 13:40 | MM ---
Reason for exam: additional evaluation requested from prior study. Last mammogram was performed 1 year and 11 months ago. History: Patient has history of breast cancer at age 53. Mastectomy of the right breast, April 2019. Malignant US biopsy breast VAD RT of the right breast, February 19, 2019. Chemotherapy, 2019. Radiation therapy of the right breast, 2019. Physical Findings: Nurse did not find any significant physical abnormalities on exam. MG Diagnostic Mammo LT w CAD CC and MLO view(s) were taken of the left breast. Prior study comparison: February 10, 2019, bilateral MG diagnostic mammo w CAD JANIS. The breast tissue is almost entirely fat. Minimal retroareolar density felt to reflect minimal gynecomastia. These results were verbally communicated with the patient and result sheet given to the patient on 12/29/20. ASSESSMENT: Benign, BI-RAD 2 RECOMMENDATION: Follow-up diagnostic mammogram of the left breast in 1 year.
== END | disposition home or self-care (01) ==
LOC: RADMAMWWP 14:26
PROVIDERS: ATTEND Internal Medicine Hematology & Oncology
DX: K76.0 Fatty (change of) liver, not elsewhere classified (principal); N62 Hypertrophy of breast; Z85.3 Personal history of malignant neoplasm of breast
CPT/HCPCS: 82565; 84520; 77065; 74160; 36415; Q9967

== ENCOUNTER 2021-04-12 22:44 | Emergency (ER) | payer BC ==
[2021-04-12 23:47] VITALS: BP 112/60; PULSE 97; RESP 18; TEMP 98.3
[2021-04-12] MEDS ORDERED: DIPH,PERTUS(ACELL)TETVAC-LF 0.5 ML VIAL IM ONE (23:52)
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
== END 2021-04-13 00:21 | disposition home or self-care (01) ==
LOC: EC 22:44
DX: S01.03XA Puncture wound without foreign body of scalp, initial encounter (principal); J45.909 Unspecified asthma, uncomplicated; K21.9 Gastro-esophageal reflux disease without esophagitis; M19.90 Unspecified osteoarthritis, unspecified site; Z79.52 Long term (current) use of systemic steroids; Z79.51 Long term (current) use of inhaled steroids; Z79.82 Long term (current) use of aspirin; Z79.899 Other long term (current) drug therapy; Z85.3 Personal history of malignant neoplasm of breast; W45.0XXA Nail entering through skin, initial encounter
CPT/HCPCS: 90471; 90715; 99283

== ENCOUNTER → 2022-01-25 | Outpatient (CLI) | payer BC ==
--- NOTE | 2022-01-31 10:12 | MM ---
Reason for Exam: Hx of breast cancer, mastectomy. Last mammogram was performed 1 year(s) and 1 month(s) ago. Patient History: Breast cancer, right, age 53. 04/2019, Mastectomy on the Right side. 02/19/2019, Malignant Core Biopsy on the right side. 2019, Chemotherapy. 2019, Radiation Therapy on the right side. Prior Study Comparison: 02/10/2019 Bilateral Diagnostic Mammogram, [facility]. 12/29/2020 Left Diagnostic Mammogram, [facility]. Tissue Density: Left: The breast tissue is almost entirely fat. Findings: Analyzed By CAD. Trace gynecomastia is stable. No suspicious calcifications or architectural distortion. No evidence of mass. Overall Assessment: Benign, BI-RAD 2 Management: Screening Mammogram of the left breast in 1 year. A clinical breast exam by your physician is recommended on an annual basis and results should be correlated with mammographic findings. This exam should not preclude additional follow-up of suspicious palpable abnormalities. Results were given to the patient verbally at the time of exam. Electronically signed and approved by: Ruslan Mai M.D. Radiologis
== END | disposition home or self-care (01) ==
LOC: RADMAMWWP 15:10
PROVIDERS: ATTEND Internal Medicine Hematology & Oncology
DX: R92.8 Other abnormal and inconclusive findings on diagnostic imaging of breast (principal); Z85.3 Personal history of malignant neoplasm of breast; Z90.11 Acquired absence of right breast and nipple; Z92.3 Personal history of irradiation
CPT/HCPCS: 77065

== ENCOUNTER → 2022-03-22 | Outpatient (CLI) | payer BC ==
--- NOTE | 2022-03-22 16:38 | XR ---
EXAMINATION TYPE: XR chest 2V DATE OF EXAM: 03/22/2022 4:30 PM COMPARISON: Multiple radiographs, with the most recent on 04/08/2020. TECHNIQUE: XR chest 2V Frontal and lateral views of the chest. CLINICAL INDICATION:Male, 56 years old with history of R05 COUGH; FINDINGS: Lungs/Pleura: There is no evidence of pleural effusion, focal consolidation, or pneumothorax. Pulmonary vascularity: Unremarkable. Heart/mediastinum: Cardiomediastinal silhouette is unremarkable. Musculoskeletal: No acute osseous pathology. IMPRESSION: No acute cardiopulmonary disease/process.
== END | disposition home or self-care (01) ==
LOC: RADXRYALE 16:10
PROVIDERS: ATTEND Physician Assistant
DX: R05.9 Cough, unspecified (principal)
CPT/HCPCS: 71046

== ENCOUNTER → 2022-09-11 | Outpatient (CLI) | payer BC ==
--- NOTE | 2022-09-11 15:43 | XR ---
EXAMINATION TYPE: XR chest 2V DATE OF EXAM: 09/11/2022 3:37 PM COMPARISON: Chest radiographs from 03/22/2022. TECHNIQUE: XR chest 2V Frontal and lateral views of the chest. CLINICAL INDICATION:Male, 57 years old with history of [id number] ASTHMA; FINDINGS: Lungs/Pleura: There is no evidence of pleural effusion, focal consolidation, or pneumothorax. Pulmonary vascularity: Unremarkable. Heart/mediastinum: Cardiomediastinal silhouette is stable. Surgical clips in the mediastinum. Musculoskeletal: No acute osseous pathology. Other findings: Surgical clips along the right breast. IMPRESSION: No acute cardiopulmonary disease/process. No significant change from prior examination.
== END | disposition home or self-care (01) ==
LOC: RADXRYALE 14:52
PROVIDERS: ATTEND Physician Assistant
DX: J45.21 Mild intermittent asthma with (acute) exacerbation (principal)
CPT/HCPCS: 71046

== ENCOUNTER → 2023-02-12 | Outpatient (CLI) | payer BC ==
--- NOTE | 2023-02-14 09:27 | MM ---
Reason for Exam: Hx of breast cancer, mastectomy. Last screening mammogram was performed 12 month(s) ago. Patient History: Breast cancer, right, age 53. Previous chest radiation therapy at age 54. Previous chemotherapy at age 54. 04/2019, Mastectomy on the Right side. 02/19/2019, Malignant Core Biopsy on the right side. 2019, Chemotherapy. 2018, Radiation Therapy on the right side. Prior Study Comparison: 02/10/2019 Bilateral Diagnostic Mammogram, [facility]. 12/29/2020 Left Diagnostic Mammogram, [facility]. 01/25/2022 Left MG diagnostic mammo LT w CAD, [facility]. Tissue Density: Left: There are scattered fibroglandular densities. Findings: Analyzed By CAD. Pattern appears stable. No significant interval change is evident. No suspicious groups of microcalcifications, spiculated or lobular masses, architectural distortion or other secondary signs of malignancy are mammographically apparent. Overall Assessment: Negative, BI-RAD 1 Management: Diagnostic Mammogram of the left breast in 1 year. A negative mammogram report should not preclude additional follow up of suspicious palpable abnormalities. Patient should continue monthly self breast exam. A clinical breast exam by your physician is recommended on an annual basis and results should be correlated with mammographic findings. Electronically signed and approved by: Bari Ospina D.O. Radiologis
== END | disposition home or self-care (01) ==
LOC: RADMAMWWP 15:12
PROVIDERS: ATTEND Internal Medicine Hematology & Oncology
DX: Z85.3 Personal history of malignant neoplasm of breast (principal); Z90.11 Acquired absence of right breast and nipple
CPT/HCPCS: 77061; 77065

== ENCOUNTER → 2024-02-25 | Outpatient (CLI) | payer BC ==
[2024-02-25 18:21] LABS: Basophils # (A) 0.04 X 10*3/uL (0.00-0.10); Basophils % (A) 0.4 %; Eosinophils # (A) 0.09 X 10*3/uL (0.04-0.35); HCT 42.9 % (39.6-50.0); HGB 13.8 g/dL (13.0-17.0); Lymphocytes % (A) 26.4 %; MCH 35.1 pg (27.0-32.0); MCHC 32.2 g/dL (32.0-37.0); MCV 109.2 FL (80.0-97.0); Mean Platelet Volume 11.2 FL (9.5-12.2); Monocytes # (A) 0.73 X 10*3/uL (0.20-1.00); NRBC Per 100 WBC 0 X 10*3/uL (0.00-0.01); Neutrophils # (A) 5.78 X 10*3/uL (1.80-7.70); Neutrophils % (A) 63.8 %; Platelet Count 243 X 10*3/uL (140-440); RBC 3.93 X 10*6/uL (4.40-5.60); RDW 12.9 % (11.5-14.5); WBC 9.08 X 10*3/uL (4.50-10.00)
[2024-02-25 21:26] LABS: ALT 79 U/L (10-49); AST 69 U/L (14-35); Albumin 3.5 g/dL (3.8-4.9); Alkaline Phosphatase 77 U/L (41-126); BUN/Creat Ratio 16.11 Ratio (12.00-20.00); Blood Urea Nitrogen 14.5 mg/dL (9.0-27.0); Calcium 9.2 mg/dL (8.7-10.3); Carbon Dioxide 20.1 mmol/L (21.6-31.8); Chloride 103 mmol/L (96-109); Globulin 5.8 g/dL (1.6-3.3); Glucose 173 mg/dL (70-110); Potassium 4.5 mmol/L (3.5-5.5); Sodium 135 mmol/L (135-145); Total Bilirubin 0.6 mg/dL (0.3-1.2); Total Protein 9.3 g/dL (6.2-8.2)
== END | disposition home or self-care (01) ==
LOC: LABWHC1 12:44
PROVIDERS: ATTEND Internal Medicine Gastroenterology
DX: K76.0 Fatty (change of) liver, not elsewhere classified (principal)
CPT/HCPCS: 36415; 80053; 81596; 85025

== ENCOUNTER → 2024-04-10 | Outpatient (CLI) | payer BC | END | disposition home or self-care (01) | LOC: LABPRL 12:00 | PROVIDERS: ATTEND Physician Assistant | DX: E03.9 Hypothyroidism, unspecified (principal) | CPT/HCPCS: 84439; 84443 ==

== ENCOUNTER → 2024-06-09 | Outpatient (CLI) | payer BC ==
--- NOTE | 2024-06-10 10:06 | MM ---
Reason for Exam: Follow-up at short interval from prior study. Last mammogram was performed 1 year(s) and 4 month(s) ago. Patient History: Breast cancer, right, age 53. Previous chest radiation therapy at age 54. Previous chemotherapy at age 54. 04/2019, Mastectomy on the Right side. 02/19/2019, Malignant Core Biopsy on the right side. 2019, Chemotherapy. 2018, Radiation Therapy on the right side. Prior Study Comparison: 12/29/2020 Left Diagnostic Mammogram, [facility]. 01/25/2022 Left MG diagnostic mammo LT w CAD, [facility]. 02/12/2023 Left MG 3D diag mammo w/cad LT, [facility]. Tissue Density: Left: The breasts are almost entirely fatty. Findings: Analyzed By CAD. Soft tissue density posterior left breast compatible gynecomastia. No new suspicious masses, calcifications or distortions. Overall Assessment: Benign, BI-RAD 2 Management: Screening Mammogram of the left breast in 1 year. Results were given to the patient verbally at the time of exam. Patient should continue monthly self-breast exams. A clinical breast exam by your physician is recommended on an annual basis. This exam should not preclude additional follow-up of suspicious palpable abnormalities. Note on Emilia scores and lifetime risk: 1. A Emilia score greater than 3% is considered moderate risk. If this is the case, consider specialist referral to assess eligibility for a risk reducing agent. 2. If overall lifetime risk for the development of breast cancer is 20% or higher, the patient may qualify for future screening with alternating mammogram and breast MRI. [facility], , 06/10/2024 10:02 AM. Electronically signed and approved by: Sukhwinder Fowler DO
== END | disposition home or self-care (01) ==
LOC: RADMAMWWP 13:36
PROVIDERS: ATTEND Internal Medicine Hematology & Oncology
DX: C50.121 Malignant neoplasm of central portion of right male breast (principal); R92.313 Mammographic fatty tissue density, bilateral breasts; Z90.11 Acquired absence of right breast and nipple; Z92.3 Personal history of irradiation
CPT/HCPCS: 77061; 77065

== ENCOUNTER → 2024-06-25 | Outpatient (CLI) | payer BC ==
--- NOTE | 2024-06-25 17:48 | US ---
EXAMINATION TYPE: US groin RT DATE OF EXAM: 06/25/2024 COMPARISON: NONE CLINICAL INDICATION: Male, 58 years old with history of R590 ENLARGED LYMPH NODES; Palpable right benjy in. history of breast cancer and lymphoma TECHNIQUE: Grayscale and color Doppler imaging of the right groin. FINDINGS: Hypoechoic mass in the right groin in the area of concern = 8.5 x 4.4 x 5.0cm. at least 2 other lymph nodes visualized as well IMPRESSION: Abnormally enlarged right groin lymph node suspicious for malignancy. [facility], , 06/25/2024 5:46 PM
== END | disposition home or self-care (01) ==
LOC: RADUSWWP 16:02
PROVIDERS: ATTEND Family Medicine

== ENCOUNTER 2024-09-10 12:12 | Day surgery (SDC) | payer BC ==
[~2024-09-10 12:12] MED LIST changes: -ACETAMINOPHEN TAB 500 MG TAB PO ONE; -HEPARIN SODIUM,PORCINE 5,000 UNIT/ML 1 ML VIAL SQ ONE; +LACTATED RINGERS 1,000 ML IV SCH; +LIDOCAINE 1% (10MG/ML) FOR IV START INTRADERMA PRN; +ONDANSETRON 4 MG/2 ML VIAL IVP PRN; -ceFAZolin 3 GM in SODIUM CHLORIDE 0.9% 100 ML IVPB ONE
[2024-09-10 14:04] VITALS: TEMP 97
[2024-09-10] MEDS: LACTATED RINGERS 500 ML IV ONE (14:10)
[2024-09-10] MEDS ORDERED: PROPOFOL 10 MG/ML 20 ML VIAL IV ONE (14:34)
--- NOTE | 2024-09-10 14:57 | P.PCN ---
Date of Procedure: 09/10/24 Procedure(s) Performed: BRIEF HISTORY: Patient is a 59-year-old pleasant white male scheduled for an elective colonoscopy as a part of screening for colon cancer. 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 Siddiqi. No prior history of colonoscopy. PROCEDURE PERFORMED: Colonoscopy. PREOPERATIVE DIAGNOSIS: Recently diagnosed with poorly differentiated neuroendocrine endocrine tumor of the inguinal lymph node rule out colonic primary. IV sedation per Anesthesia. PROCEDURE: After informed consent was obtained, the patient, was brought into the endoscopy unit. IV sedation was administered by Anesthesia under continuous monitoring. Digital rectal examination was normal. Initially the Olympus CF-160 flexible video colonoscope was then inserted in the rectum, gradually advanced into the cecum without any difficulty. Careful examination was performed as the scope was gradually being withdrawn. Ileocecal valve and the appendiceal orifice were visualized and appeared normal. Prep was excellent. Mucosa of the cecum, ascending colon, transverse colon, descending colon, sigmoid colon, and rectum appeared normal. Katter sigmoid diverticulosis. Retroflexion was performed in the rectum and no lesions were seen. The patient tolerated the procedure well. IMPRESSION: Normal-appearing colon from rectum to cecum no evidence of colorectal neoplasia Scattered sigmoid diverticulosis. RECOMMENDATIONS: Findings of this examination were discussed with the patient as well as his family. He was advised to have repeat screening colonoscopy in 10 years..
[2024-09-10 15:23] VITALS: BP 141/95; PULSE 92; RESP 20
== END 2024-09-10 15:43 | disposition home or self-care (01) ==
LOC: ORWHC2ENDO 12:12
PROVIDERS: ATTEND Internal Medicine Gastroenterology
DX: Z12.11 Encounter for screening for malignant neoplasm of colon (principal); K57.30 Diverticulosis of large intestine without perforation or abscess without bleeding; C7A.1 Malignant poorly differentiated neuroendocrine tumors; K76.0 Fatty (change of) liver, not elsewhere classified; G47.33 Obstructive sleep apnea (adult) (pediatric); J45.909 Unspecified asthma, uncomplicated; M19.90 Unspecified osteoarthritis, unspecified site; F41.9 Anxiety disorder, unspecified; K21.9 Gastro-esophageal reflux disease without esophagitis; Z79.899 Other long term (current) drug therapy; Z79.51 Long term (current) use of inhaled steroids; Z79.82 Long term (current) use of aspirin; Z98.890 Other specified postprocedural states
CPT/HCPCS: 45378; J2704

== ENCOUNTER 2024-09-15 06:03 | Day surgery (SDC) | payer BC ==
[~2024-09-15 06:03] MED LIST changes: -LACTATED RINGERS 1,000 ML IV SCH; -LIDOCAINE 1% (10MG/ML) FOR IV START INTRADERMA PRN; -ONDANSETRON 4 MG/2 ML VIAL IVP PRN; +Pre Op ABX Message 1 EACH MISC MISCELLANE ONE
[2024-09-15] MEDS ORDERED: LIDOCAINE 1% (10MG/ML) FOR IV START INTRADERMA PRN (06:33)
[2024-09-15] MEDS ORDERED: MIDAZOLAM 2 MG/2 ML VIAL IV PRN (06:33)
[2024-09-15] MEDS ORDERED: fentaNYL (PF) 50 MCG/ML 2 ML AMP IVP PRN (06:33)
[2024-09-15] MEDS ORDERED: HYDROmorphone 0.5 MG/0.5 ML SYRINGE IVP PRN (06:33)
[2024-09-15] MEDS: IV FLUID CONTINUATION 1,000 ML IV ONE (06:48)
[2024-09-15] MEDS: ACETAMINOPHEN TAB 500 MG TAB PO PRN (06:55)
[2024-09-15] MEDS: ONDANSETRON 4 MG/2 ML VIAL IVP ONE (06:56)
[2024-09-15] MEDS: DEXAMETHASONE SOD PHOSPHATE 4 MG/ML 1 ML VIAL IV ONE (06:56)
[2024-09-15] MEDS: LACTATED RINGERS 1,000 ML IV SCH (06:58)
[2024-09-15] MEDS: HEPARIN SODIUM,PORCINE 5,000 UNIT/ML 1 ML VIAL SQ PRN (06:59)
[2024-09-15] MEDS ORDERED: fentaNYL (PF) 50 MCG/ML 2 ML AMP ONE (07:23)
[2024-09-15] MEDS ORDERED: MIDAZOLAM 2 MG/2 ML VIAL ONE (07:23)
[2024-09-15] MEDS ORDERED: SUCCINYLCHOLINE CHLORIDE 200 MG/10 ML VIAL IV ONE (07:23)
[2024-09-15] MEDS ORDERED: PHENYLEPHRINE-0.9% NACL SYG 1,000 MCG/10 ML SYRINGE ONE (07:23)
[2024-09-15] MEDS ORDERED: HYDROmorphone (PF) 1 MG/ML ONE (07:23)
[2024-09-15] MEDS ORDERED: LIDOCAINE 1% INJ 10MG/ML (20 ML MDV) ONE (07:23)
[2024-09-15] MEDS ORDERED: PROPOFOL 10 MG/ML 20 ML VIAL IV ONE (07:23)
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
[2024-09-15] MEDS: ceFAZolin 1,000 MG VIAL IVPB ONE (07:50)
[2024-09-15] MEDS: LIDOCAINE 1% INJ 10MG/ML (20 ML MDV) SQ ONE (07:52)
--- NOTE | 2024-09-15 08:33 | FL ---
EXAMINATION TYPE: FL guided central line placemt HISTORY: Fluoroscopy time Impression: 1. Fluoroscopy support provided to the referring physician. DAP [phone] [facility], , 09/15/2024 8:31 AM
[2024-09-15] MEDS ORDERED: NALOXONE 0.4 MG/ML 1 ML VIAL IV PRN (08:35)
[2024-09-15] MEDS ORDERED: HYDROcodone/APAP 5-325MG 1 EACH TAB PO PRN (08:35)
--- NOTE | 2024-09-15 08:38 | P.OP ---
Date of Procedure: 09/15/24 Procedure(s) Performed: PREOPERATIVE DIAGNOSIS: Neuroendocrine cancer POSTOPERATIVE DIAGNOSIS: Same PROCEDURE: Port-A-Cath placement with fluoroscopic and ultrasound guidance SURGEON: Regi EBL: 5 cc ANESTHESIA: General COMPLICATIONS: None OPERATIVE PROCEDURE: Patient was brought and placed on the operative table in the supine position. The patient was placed under general anesthesia at that time. The chest and neck were prepped and draped in usual sterile fashion. The ultrasound probe was used to identify the location of the right internal jugular vein. The skin was localized with lidocaine. The Seldinger needle was advanced into the IJ under ultrasound guidance. The wire was advanced through the needle under fluoroscopic guidance into the superior vena cava. A port pocket was created in the right infraclavicular location. The previous port scar was excised. The catheter was tunneled from the wire entrance site to the port pocket. The port was then connected to the catheter. The dilator introducer was threaded over the guidewire. The guidewire and dilator were then removed. The catheter was advanced through the introducer and introducer was then removed. The tip was seen to be in the right atrial junction via fluoroscopy. A picture of the radiograph showing the tip of the catheter was taken. Port was flushed with both saline and a Hep-Lock solution. There was good flow both in and out of the port. The port was sutured in underlying tissues using 3-0 silk sutures. The subcutaneous tissues were reapproximated using 3-0 Vicryl sutures and the skin at both locations using 4-0 Monocryl sutures. Skin glue and sterile dressings then applied. DISPOSITION: Stable to recovery room
[2024-09-15 08:48] VITALS: TEMP 98.1
--- NOTE | 2024-09-15 09:11 | XR ---
EXAMINATION TYPE: XR chest 1V confirm line plcmt DATE OF EXAM: 09/15/2024 COMPARISON: 09/11/2022 CLINICAL INDICATION: Male, 59 years old with history of Check Lyme; , TECHNIQUE: XR chest 1V confirm line plcmt views of the chest. FINDINGS: Osseous structures demonstrate hypertrophic and degenerative changes of the spine. Mediport catheter seen the tip overlying the SVC. Surgical clips overlying the axilla. Mild coarsened interstitium. Sub segmental changes right lung base most typical of atelectasis or scarring. Heart size stable. Atheros clerotic change aorta. No pulmonary edema. No pneumothorax. IMPRESSION: 1. Mediport catheter seen with the tip overlying the SVC. No pneumothorax. 2. Coarsened interstitium likely reflects reduced inspiration rather than bronchitis or interstitial pneumonitis. Correlate clinically. 3. Basilar subsegmental atelectasis favored over pneumonia. [facility], , 09/15/2024 9:09 AM
[2024-09-15 09:18] VITALS: RESP 16
[2024-09-15 09:55] VITALS: BP 120/77; PULSE 87
== END 2024-09-15 10:14 | disposition home or self-care (01) ==
LOC: OR 06:03
PROVIDERS: ATTEND Surgery
DX: C7A.8 Other malignant neuroendocrine tumors (principal); G47.30 Sleep apnea, unspecified; E07.9 Disorder of thyroid, unspecified; J45.909 Unspecified asthma, uncomplicated; K21.9 Gastro-esophageal reflux disease without esophagitis; K76.0 Fatty (change of) liver, not elsewhere classified; M19.90 Unspecified osteoarthritis, unspecified site; Z85.3 Personal history of malignant neoplasm of breast; Z90.11 Acquired absence of right breast and nipple; Z79.890 Hormone replacement therapy
CPT/HCPCS: 77001; 36561; C1788; J2250; J0330; J1644; J1100; J2405; J0690; J2003; J3010; J1171; J1642; J2704; J2371

== ENCOUNTER 2025-03-09 12:59 | Day surgery (SDC) | payer BC ==
[2025-03-09] MEDS: ALPRAZolam 0.5 MG TAB PO STA (13:16)
[2025-03-09 13:40] VITALS: TEMP 98.4
[2025-03-09 14:56] VITALS: BP 118/89; PULSE 89; RESP 18
--- NOTE | 2025-03-10 11:59 | US ---
EXAMINATION TYPE: US discontinued FNA panel DATE OF EXAM: 03/09/2025 2:32 PM COMPARISON: CLINICAL INDICATION:Male, 59 years old with history of Z08 FOLLOW-UP EXAM AFTER TRTMT FOR MALIGNANT N EOPL; , ATTENDING: Dr. Sukhwinder Fowler PROCEDURE: Normal-sized lymph nodes are seen within the neck and therefore biopsy was discontinued. IMPRESSION: As above [facility], , 03/10/2025 11:56 AM
== END 2025-03-09 14:50 | disposition home or self-care (01) ==
LOC: RADPROMAIN 12:59
PROVIDERS: ATTEND Radiology Radiation Oncology
DX: Z53.8 Procedure and treatment not carried out for other reasons (principal); Z08 Encounter for follow-up examination after completed treatment for malignant neoplasm
CPT/HCPCS: 36415; 76536